=== PATIENT | male | born 2000 | race Caucasian/White ===

== ENCOUNTER 2023-06-13 13:07 | Emergency (ER) | payer MEDICAID ==
[~2023-06-13] VITALS: Ht 179.1 cm; Wt 82.7 kg
[2023-06-13 13:16] VITALS: BP 118/78; PULSE 52; RESP 20; TEMP 98.5; O2SAT 98
[2023-06-13] MEDS ORDERED: IBUP-2213 PO (14:18)
[2023-06-13] MEDS ORDERED: AMOX875T3 PO (14:18)
== END 2023-06-13 14:24 | disposition home or self-care (01) ==
LOC: MED 13:07
DX: H66.91 Otitis media, unspecified, right ear (principal); Z79.1 Long term (current) use of non-steroidal anti-inflammatories (NSAID)
CPT/HCPCS: 99283